=== PATIENT | female | born 1945 | race Caucasian/White ===

== ENCOUNTER 2016-08-03 14:54 | Emergency (ER) | payer MEDICARE, OTHER | END 2016-08-03 19:12 | disposition left against medical advice (07) | LOC: ER 14:54 | DX: Z53.21 Procedure and treatment not carried out due to patient leaving prior to being seen by health care provider (principal) ==

== ENCOUNTER 2016-08-12 17:23 | Inpatient (IN) | payer MEDICARE, OTHER ==
[~2016-08-12] VITALS: Ht 167.6 cm; Wt 71.7 kg
[2016-08-12] MEDS ORDERED: SALINE FLUSH 10 ML FLUSH PRN (17:30)
[2016-08-12] MEDS ORDERED: BISACODYL 10 MG SUPP RECTAL PRN (17:30)
[2016-08-12] MEDS ORDERED: BISACODYL EC 5 MG TAB PO PRN (17:30)
[2016-08-12] MEDS ORDERED: ACETAMINOPHEN 325 MG TAB PO PRN (17:30)
[2016-08-12 19:20] VITALS: BP_SYST 160; RESP 18; TEMP 98.9; Ht 167.6 cm; Wt 71.7 kg
[2016-08-12] MEDS: FAMOTIDINE 20 MG TAB PO SCH (21:12)
[2016-08-12] MEDS: Atorvastatin 20 MG TAB PO SCH (21:12)
[2016-08-12] MEDS: SALINE FLUSH 10 ML FLUSH SCH (21:12)
[2016-08-12] MEDS: Aspirin 325 MG TAB PO SCH (21:13)
[2016-08-12] MEDS: SODIUM CHLORIDE 0.9% FLUSH BAG 500 ML IV SCH (21:19)
[2016-08-12 21:20] VITALS: BP_SYST 117; RESP 18
[2016-08-12] MEDS ORDERED: *PINK BRACELET XX ONE (21:35)
[2016-08-12] MEDS: FLUTICASONE 0.05% NA BTL NARE EACH SCH (22:05)
[2016-08-12] MEDS: CEPHALEXIN 500 MG CAP PO SCH (22:33)
[2016-08-12 23:22] VITALS: BP_SYST 113; RESP 16
[2016-08-13] VITALS (10 sets, daily range): BP systolic 98–139; RESP 16–20; TEMP 98.2–98.8
[2016-08-13] MEDS: [UNRECOGNIZED DRUG - OTHER] XX SCH ×2 (08:00→19:10)
[2016-08-13] MEDS ORDERED: POLYETHYLENE GLYCOL 17 GM PACKET PO SCH (09:00)
[2016-08-13] MEDS: FLUTICASONE 0.05% NA BTL NARE EACH SCH ×3 (09:00→20:50)
[2016-08-13] MEDS ORDERED: NICOTINE 21 MG/24 HR TRANSDERM SCH (09:00)
[2016-08-13] MEDS: FAMOTIDINE 20 MG TAB PO SCH ×2 (09:27→21:19)
[2016-08-13] MEDS: CEPHALEXIN 500 MG CAP PO SCH ×2 (09:27→21:19)
[2016-08-13] MEDS: MULTIVITS/MINERALS (THERAGRAN M) TAB PO SCH (09:27)
[2016-08-13] MEDS: SALINE FLUSH 10 ML FLUSH SCH ×2 (09:27→21:19)
[2016-08-13] MEDS: Aspirin 325 MG TAB PO SCH (09:27)
[2016-08-13] MEDS: ENOXAPARIN 40 MG/0.4 ML SYR SUBQ SCH (09:28)
[2016-08-13] MEDS: NICOTINE 7 MG/24 HR TRANSDERM SCH (09:28)
[2016-08-13] MEDS: SODIUM CHLORIDE 0.9% FLUSH BAG 500 ML IV SCH (19:10)
[2016-08-13] MEDS: Atorvastatin 20 MG TAB PO SCH (21:19)
[2016-08-14] VITALS: BP_SYST 115; RESP 16; TEMP 98.6
[2016-08-14 04:00] VITALS: BP_SYST 138; RESP 16; TEMP 98.1
[2016-08-14] MEDS: [UNRECOGNIZED DRUG - OTHER] XX SCH ×2 (07:32→14:11)
[2016-08-14 08:00] VITALS: BP_SYST 127; RESP 18; TEMP 98.1
[2016-08-14] MEDS: FLUTICASONE 0.05% NA BTL NARE EACH SCH (09:00)
[2016-08-14] MEDS: SALINE FLUSH 10 ML FLUSH SCH (09:10)
[2016-08-14] MEDS: MULTIVITS/MINERALS (THERAGRAN M) TAB PO SCH (09:11)
[2016-08-14] MEDS: FAMOTIDINE 20 MG TAB PO SCH (09:11)
[2016-08-14] MEDS: Aspirin 325 MG TAB PO SCH (09:11)
[2016-08-14] MEDS: CEPHALEXIN 500 MG CAP PO SCH (09:11)
[2016-08-14] MEDS: NICOTINE 7 MG/24 HR TRANSDERM SCH (09:13)
[2016-08-14] MEDS: ENOXAPARIN 40 MG/0.4 ML SYR SUBQ SCH (09:17)
[2016-08-14 12:00] VITALS: BP_SYST 141; RESP 18; TEMP 98.2
[2016-08-14 12:57] VITALS: BP_SYST 141; RESP 18; TEMP 98.2
== END 2016-08-14 11:17 | disposition home or self-care (01) | DRG 65 ==
LOC: ENRESERVTM → ENRESERVDT → ENPENDDIS 18:43 → PCU 18:43
PROVIDERS: ADMIT Family Medicine; ATTEND Family Medicine
DX: I63.9 Cerebral infarction, unspecified (principal); G81.94 Hemiplegia, unspecified affecting left nondominant side; I10 Essential (primary) hypertension; E78.5 Hyperlipidemia, unspecified; F17.200 Nicotine dependence, unspecified, uncomplicated; Z79.82 Long term (current) use of aspirin; J01.90 Acute sinusitis, unspecified; H66.90 Otitis media, unspecified, unspecified ear
CPT/HCPCS: 70496; 70498; 70553; 80048; 80053; 80061; 81003; 82947; 84439; 84443; 84484; 85025; 85652; 93005; 93306; 94799; 99233; 99239

== ENCOUNTER 2016-08-16 03:05 | Emergency (ER) | payer MEDICARE, OTHER ==
[2016-08-16] MEDS ORDERED: MORPHINE 4 MG/ML SYR ONE (04:12)
[2016-08-16] MEDS ORDERED: ONDANSETRON 4 MG VIAL ONE ×2 (04:12→05:12)
[2016-08-16] MEDS ORDERED: SODIUM CHLORIDE 0.9% 500 ML IV ONE (05:53)
== END 2016-08-16 07:40 | disposition home or self-care (01) ==
LOC: ER 03:05
DX: M25.551 Pain in right hip (principal); F17.210 Nicotine dependence, cigarettes, uncomplicated; Z79.899 Other long term (current) drug therapy; Z79.82 Long term (current) use of aspirin; Z86.73 Personal history of transient ischemic attack (TIA), and cerebral infarction without residual deficits; I10 Essential (primary) hypertension
CPT/HCPCS: 36415; 71275; 73502; 74175; 80053; 85025; 85610; 85730; 96361; 96374; 96375; 99285; J2270; J2405; J7040